=== PATIENT | male | born 1960 ===

== ENCOUNTER → 2023-05-12 14:25 | Outpatient (REF) | payer OTHER, SELFPAY ==
--- NOTE | 2023-05-12 14:31 | CA_ITS ---
Transthoracic Echocardiogram Patient (Last, First, Middle): Coleman Colvin, Gender: Male Date of : 1960 Age: 63 Procedure Date: 05/12/2023 Procedure Type: Transthoracic Echocardiogram Location: OP Height: 154.94 cm Weight: 56.7 kg BSA: 1.55 m2 Heart Rate: 60 bpm BP: 125 / 70 mmHg Costume Director: VALERIO Giles MD: Gloria Petty MD [employer] Attendant: Kwame Grajeda MD Symptoms: R01.1 CA MURMUR Study Quality: Good ECG Rhythm: Sinus Conclusions: - 1. Normal LV systolic function with grade 1 diastolic dysfunction 2. Mild aortic stenosis 3. Upper limits of normal ascending aortic size 4. No pericardial effusion Findings Left Ventricle Normal left ventricular size, thickness, and systolic function. The visually estimated ejection fraction is between 65-70%. Spectral Doppler is indicative of an impaired relaxation filling pattern. E/E prime ratio is <8, consistent with normal filling pressures. Evidence suggests grade I (mild) diastolic dysfunction. Peak GLS is -19.3%, within normal limits. Right Ventricle Normal right ventricular cavity size and systolic function. Atria Both atria are normal in size. There is no evidence of interatrial shunt. Aortic Valve There is mild calcification of the aortic valve. There is mild aortic valve stenosis. The peak aortic gradient is 20 mmHg.The mean gradient is 10 mmHg. The aortic valve area is 1.70 cm2. There is no aortic valve regurgitation. Mitral Valve Normal mitral valve structure and function. There is trace mitral valve regurgitation. There is no mitral valve stenosis. Pulmonic Valve The pulmonic valve is likely normal. There is trace pulmonic valve regurgitation. Tricuspid Valve Normal tricuspid valve structure. Tricuspid regurgitation envelope is inadequate for calculation of right ventricular systolic pressure. Normal right atrial pressure. Great Vessels The pulmonary artery was not well visualized. Venous The inferior vena cava is normal in size and collapses greater than 50% with inspiration. Pericardium/Pleural There is no evidence of pericardial effusion. Prior Study Comparison No prior study available for comparison. Measurements 2D Linear Measurements IVSd: 1.10 0.6-0.9/0.6-1.0 cm LVIDd: 3.70 3.9-5.3/4.2-5.9 cm LVIDd Index: 2.39 2.4-3.2/2.2-3.1 cm/m2 LVIDs: 2.00 2.0-3.6 cm LVPWd: 1.30 0.7-1.1 cm LA Diam: 3.50 2.7-3.8/3.0-4.0 cm LAIDs Index: 2.26 1.5-2.3 cm/m2 LV Mass: 183.38 67-162/88-224 g LV Mass Index: 118.31 43-95/49-115 g/m2 LVOT Diam: 1.90 3.0+(-)1.3 cm 2D Systolic Function EF 4C: 75.00 >55% EF 2C: 74.80 >55% EF BiP: 74.90 >55% Mitral Valve MV Pk E: 0.80 MV PK A: 0.87 MV Decel Time: 255.00 E/A: 0.90 E'Lateral: 7.18 E'Medial: 7.07 E/E' Med: 11.30 E/E' Lat: 11.20 PHT: 75.00 MVA PHT: 2.93 Decel [place]: 3.14 Aortic Valve AoV Pk Blaise: 2.22 AoV Mn Blaise: 1.49 AoV VTI: 0.44 AoV Pk Grad: 20.00 Aov Mn Grad: 10.00 MARIELENA Cont.VTI: 1.70 LVOT LVOT Pk Blaise: 1.38 LVOT Mn Blaise: 0.89 LVOT VTI: 0.26 LVOT Pk Grad: 8.00 LVOT Mn Grad: 4.00 LVOT Diam: 1.90 LVOT Area: 2.84 Diastolic Function MV Pk E: 0.80 MV Pk A: 0.87 E/A: 0.90 E'Medial: 7.07 E/E' Med: 11.30 E' Laterial: 7.18 E/E' Lat: 11.20 Right Ventricle TAPSE (mm): 23.80 TVS' Blaise: 12.40 Tricuspid Valve RA Press: 3.00 Great Vessels Aorta Sinus of Valsalva: 3.30 2.0-3.5 cm Ao Asc: 3.50 2.1-3.4 cm Pulmonary Valve PV Pk Blaise: 1.44 Peak PV Grad: 8.00 Updated in Other Vendor System with Status of Final Kwame Grajeda MD electronically signed on 05/13/2023 3:29:49 PM with status of Final
== END ==
LOC: HO.CARD 14:25
PROVIDERS: PCP Family Medicine; Visit Provider Family Medicine
DX: R01.1 Cardiac murmur, unspecified (principal)
CPT/HCPCS: 93306; 93356

== ENCOUNTER → 2023-05-12 14:31 | Outpatient (BNV) | payer OTHER, SELFPAY | PROVIDERS: PCP Family Medicine; Visit Provider Internal Medicine Cardiovascular Disease | DX: I35.0 Nonrheumatic aortic (valve) stenosis (principal) | CPT/HCPCS: 93306 ==